=== PATIENT | male | born 1935 | race Caucasian/White ===

== ENCOUNTER 2019-01-20 13:17 | Inpatient (IN) ==
[2019-01-20] MEDS ORDERED: INFLUENZA VIRUS VACCINE 0.5 ML SYRINGE IM ONE (17:01)
[2019-01-20] MEDS ORDERED: ONDANSETRON 4 MG/2 ML VIAL IV PRN (17:09)
[2019-01-20] MEDS ORDERED: NICOTINE 21 MG/24 HR PATCH TRANSDERM PRN (18:15)
[2019-01-20 18:29] LABS: Basophils % 0.4 % (0.0-0.8); Eosinophils # 0.4 10*3/uL (0.0-0.87); Eosinophils % 5.1 % (0.00-10.9); Hematocrit 35.8 VOL% (42.0-52.0); Hemoglobin 11.6 GM/DL (14.0-18.0); Immature Granulocytes % 0.3 %; Immature Granulocytes Absolute 0.02 #; Lymphocytes # 1.8 10*3/uL (1.4-4.0); Lymphocytes % 25.3 % (21.2-54.2); Mean Corpuscular HGB Conc 32.4 GM/DL (32-36); Mean Corpuscular Volume 102.3 FL (87-102); Monocytes % 10.1 % (1.7-12.7); Neutrophils % 58.8 % (38.7-73.9); Platelet Count 174 T/CUMM (130-400); Red Cell Distribution Width 13.1 % (9.3-17.3); White Blood Count 7.2 T/CUMM (4-12)
[2019-01-20 18:53] LABS: Alanine Aminotransferase 18 U/L (16-61); Albumin 3.6 G/DL (3.4-5.0); Alkaline Phosphatase 77 U/L (45-117); Aspartate Amino Transferase 15 U/L (0-37); Bilirubin,Total < 0.39 MG/DL (0.2-1.0); Blood Urea Nitrogen 31 MG/DL (7-18); Estimated Glom Filtration Rate 50 ML/MIN; Glucose 96 MG/DL (74-106); Osmolality,Calculated 285.4 MOS/KG (273-304); Total Protein 7.8 G/DL (6.4-8.3)
[2019-01-20] MEDS: DIPYRIDAMOLE/ASPIRIN 200-25 MG CAPSULE PO SCH (20:44)
[2019-01-20] MEDS: CARBIDOPA/LEVODOPA 25-100 MG TABLET PO SCH (20:44)
[2019-01-20] MEDS: clonazePAM 0.5 MG TABLET PO SCH (20:44)
[2019-01-20] MEDS: LATANOPROST 0.005% OPH SOLN 2.5 ML BOTTLE BOTH EYES SCH (21:46)
[2019-01-21 05:50] LABS: Basophils % 0.6 % (0.0-0.8); Eosinophils # 0.4 10*3/uL (0.0-0.87); Eosinophils % 6.3 % (0.00-10.9); Hemoglobin 10.7 GM/DL (14.0-18.0); Immature Granulocytes % 0.3 %; Immature Granulocytes Absolute 0.02 #; Lymphocytes % 33.1 % (21.2-54.2); Mean Corpuscular HGB Conc 33.4 GM/DL (32-36); Mean Corpuscular Volume 99.7 FL (87-102); Mean Platelet Volume 9.9 FL (9.6-12.0); Monocytes % 10.7 % (1.7-12.7); Platelet Count 159 T/CUMM (130-400); Red Blood Count 3.21 MC/CUMM (3.8-5.5); Red Cell Distribution Width 12.9 % (9.3-17.3); White Blood Count 6.2 T/CUMM (4-12)
[2019-01-21 06:19] LABS: Alanine Aminotransferase < 9 U/L (16-61); Albumin 3.2 G/DL (3.4-5.0); Alkaline Phosphatase 60 U/L (45-117); Aspartate Amino Transferase 11 U/L (0-37); Blood Urea Nitrogen 30 MG/DL (7-18); Calcium 8.9 MG/DL (8.5-10.1); Estimated Glom Filtration Rate 55 ML/MIN; Glucose 89 MG/DL (74-106); HDL Cholesterol 60 MG/DL (40-60); Osmolality,Calculated 290.8 MOS/KG (273-304); Risk Ratio 2.17; Total Protein 6.7 G/DL (6.4-8.3); Triglycerides 101 MG/DL (2-150); VLDL CHOLESTEROL 20.2 MG/DL
[2019-01-21] MEDS ORDERED: ATORVASTATIN 10 MG TABLET PO SCH (09:00)
[2019-01-21] MEDS: metFORMIN 500 MG TABLET PO SCH ×2 (09:03→17:53)
[2019-01-21] MEDS: clonazePAM 0.5 MG TABLET PO SCH ×2 (09:03→21:08)
[2019-01-21] MEDS: POTASSIUM CHLORIDE 10 MEQ TABLET PO SCH (09:03)
[2019-01-21] MEDS: DIPYRIDAMOLE/ASPIRIN 200-25 MG CAPSULE PO SCH (09:03)
[2019-01-21] MEDS: TIMOLOL 0.5% OPH SOLN 5 ML BOTTLE BOTH EYES SCH (09:03)
[2019-01-21] MEDS: OMEGA 3 ACID ETHYL ESTERS 1 GM CAPSULE PO SCH (09:03)
[2019-01-21] MEDS: PANTOPRAZOLE 40 MG TABLET PO SCH (09:03)
[2019-01-21] MEDS ORDERED: ATORVASTATIN 40 MG TABLET PO SCH (21:00)
[2019-01-21] MEDS: APIXABAN 2.5 MG TABLET PO SCH (21:09)
[2019-01-21] MEDS: CARBIDOPA/LEVODOPA 25-100 MG TABLET PO SCH (21:09)
[2019-01-21] MEDS: LATANOPROST 0.005% OPH SOLN 2.5 ML BOTTLE BOTH EYES SCH (21:20)
[2019-01-22 04:55] LABS: Basophils % 0.6 % (0.0-0.8); Eosinophils # 0.4 10*3/uL (0.0-0.87); Eosinophils % 6.5 % (0.00-10.9); Hematocrit 34.2 VOL% (42.0-52.0); Hemoglobin 11.3 GM/DL (14.0-18.0); Immature Granulocytes % 0.3 %; Immature Granulocytes Absolute 0.02 #; Lymphocytes # 2.1 10*3/uL (1.4-4.0); Lymphocytes % 33.2 % (21.2-54.2); Mean Corpuscular Volume 99.4 FL (87-102); Mean Platelet Volume 10.1 FL (9.6-12.0); Monocytes % 9.8 % (1.7-12.7); Neutrophils % 49.6 % (38.7-73.9); Platelet Count 163 T/CUMM (130-400); Red Blood Count 3.44 MC/CUMM (3.8-5.5); Red Cell Distribution Width 12.9 % (9.3-17.3); White Blood Count 6.3 T/CUMM (4-12)
[2019-01-22 05:34] LABS: Alanine Aminotransferase < 9 U/L (16-61); Albumin 3.3 G/DL (3.4-5.0); Alkaline Phosphatase 64 U/L (45-117); Aspartate Amino Transferase 13 U/L (0-37); Blood Urea Nitrogen 28 MG/DL (7-18); Calcium 9.1 MG/DL (8.5-10.1); Estimated Glom Filtration Rate 60 ML/MIN; Glucose 87 MG/DL (74-106); Total Protein 7.1 G/DL (6.4-8.3)
[2019-01-22] MEDS ORDERED: TAMSULOSIN 0.4 MG CAPSULE PO SCH (09:00)
[2019-01-22] MEDS ORDERED: ASPIRIN EC 81 MG TABLET PO SCH (09:00)
[2019-01-22] MEDS: APIXABAN 2.5 MG TABLET PO SCH (09:07)
[2019-01-22] MEDS: OMEGA 3 ACID ETHYL ESTERS 1 GM CAPSULE PO SCH (09:07)
[2019-01-22] MEDS: metFORMIN 500 MG TABLET PO SCH (09:07)
[2019-01-22] MEDS: clonazePAM 0.5 MG TABLET PO SCH (09:07)
[2019-01-22] MEDS: PANTOPRAZOLE 40 MG TABLET PO SCH (09:07)
[2019-01-22] MEDS: POTASSIUM CHLORIDE 10 MEQ TABLET PO SCH (09:38)
[2019-01-22] MEDS: TIMOLOL 0.5% OPH SOLN 5 ML BOTTLE BOTH EYES SCH (09:38)
[2019-01-22 12:57] VITALS: BP 109/60
== END 2019-01-22 13:48 | disposition home health service (06) | DRG 66 ==
LOC: N.4E 13:27 → SUATTDRO 13:27 → SUPCPDRO 15:20 → SUATTDRO 15:20
PROVIDERS: ADMIT Internal Medicine; ATTEND Emergency Medicine

== ENCOUNTER 2021-03-14 05:45 | Inpatient (IN) ==
[2021-03-09 11:46] LABS: Basophils % 0.4 % (0.0-0.8); Eosinophils # 0.1 10*3/uL (0.0-0.87); Eosinophils % 1.7 % (0.00-10.9); Hematocrit 35.2 VOL% (42.0-52.0); Hemoglobin 11.1 GM/DL (14.0-18.0); Immature Granulocytes % 0.3 %; Immature Granulocytes Absolute 0.02 #; Lymphocytes # 1.3 10*3/uL (1.4-4.0); Mean Corpuscular HGB Conc 31.5 GM/DL (32-36); Mean Corpuscular Volume 98.6 FL (87-102); Mean Platelet Volume 10.1 FL (9.6-12.0); Neutrophils % 69.6 % (38.7-73.9); Platelet Count 189 T/CUMM (130-400); Red Blood Count 3.57 MC/CUMM (3.8-5.5); Red Cell Distribution Width 13.5 % (9.3-17.3); White Blood Count 7.5 T/CUMM (4-12)
[2021-03-09 11:56] LABS: PT Patient Result 11.1 SECS (10.5-12.0); Partial Thromboplastin Time 29.7 SECS (23.8-32.1)
[2021-03-09 12:09] LABS: Albumin 3.4 G/DL (3.4-5.0); Calcium 8.8 MG/DL (8.5-10.1); Osmolality,Calculated 282.3 MOS/KG (273-304); Potassium 3.6 MMOL/L (3.5-5.1); Total Protein 7.1 G/DL (6.4-8.2)
[2021-03-14] MEDS ORDERED: HEPARIN/NACL 0.9% 2 UNITS/ML 1,000 UNIT/500 ML BAG IV ONE (05:58)
[2021-03-14] MEDS ORDERED: LIDOCAINE 2% 5 ML VIAL ONE ×2 (06:19→10:16)
[2021-03-14] MEDS ORDERED: LACTATED RINGERS 1,000 ML IV SCH (07:00)
[2021-03-14] MEDS ORDERED: HEPARIN/NACL 0.9% 2 UNITS/ML 6,000 UNIT/3,000 ML BAG IV ONE (07:31)
[2021-03-14] MEDS ORDERED: PROTAMINE SULFATE 50 MG/5 ML VIAL IV ONE ×2 (09:23→10:17)
[2021-03-14] MEDS ORDERED: SUGAMMADEX 200 MG/2 ML VIAL IV ONE (09:27)
[2021-03-14] MEDS ORDERED: HYDROmorphone 2 MG/1 ML VIAL IV PRN (09:35)
[2021-03-14] MEDS ORDERED: ONDANSETRON 4 MG/2 ML VIAL IV PRN (09:35)
[2021-03-14] MEDS ORDERED: ZOLPIDEM 5 MG TABLET PO PRN (09:37)
[2021-03-14] MEDS ORDERED: SEVOFLURANE 1 UNIT/15 MINUTE INH ONE (10:16)
[2021-03-14] MEDS ORDERED: MIDAZOLAM 2 MG/2 ML VIAL ONE (10:16)
[2021-03-14] MEDS ORDERED: propofoL 200 MG/20 ML VIAL IV ONE (10:16)
[2021-03-14] MEDS ORDERED: HEPARIN 10,000 UNIT/10 ML VIAL ONE (10:16)
[2021-03-14] MEDS ORDERED: PHENYLEPHRINE DRIP 20 MG/250 ML PREMIX IV ONE (10:17)
[2021-03-14] MEDS ORDERED: fentaNYL 100 MCG/2 ML VIAL ONE (10:17)
[2021-03-14] MEDS ORDERED: ONDANSETRON 4 MG/2 ML VIAL ONE (10:17)
[2021-03-14] MEDS ORDERED: SODIUM CHLORIDE 0.9% 1,000 ML IV ONE (10:17)
[2021-03-14] MEDS ORDERED: ROCURONIUM 50 MG/5 ML VIAL IV ONE (10:17)
[2021-03-14] MEDS ORDERED: GLYCOPYRROLATE 0.4 MG/2 ML VIAL ONE (10:17)
[2021-03-14] MEDS ORDERED: SUCCINYLCHOLINE 200 MG/10 ML VIAL ONE (10:20)
[2021-03-14] MEDS: LACTATED RINGERS 1,000 ML IV SCH (14:50)
[2021-03-14] MEDS ORDERED: LATANOPROST 0.005% OPH SOLN 2.5 ML BOTTLE BOTH EYES SCH (21:00)
[2021-03-14] MEDS ORDERED: ATORVASTATIN 10 MG TABLET PO SCH (21:00)
[2021-03-15] MEDS: TIMOLOL 0.5% OPH SOLN 5 ML BOTTLE BOTH EYES SCH ×2 (03:00→08:37)
[2021-03-15] MEDS: LACTATED RINGERS 1,000 ML IV SCH (03:02)
[2021-03-15 06:32] LABS: Hematocrit 29.6 VOL% (42.0-52.0); Hemoglobin 9.4 GM/DL (14.0-18.0)
[2021-03-15 07:07] LABS: Calcium 8.4 MG/DL (8.5-10.1); Potassium 4.1 MMOL/L (3.5-5.1)
[2021-03-15 08:17] VITALS: BP 128/54
[2021-03-15] MEDS ORDERED: ASPIRIN EC 81 MG TABLET PO SCH (09:00)
[2021-03-16] MEDS ORDERED: TAMSULOSIN 0.4 MG CAPSULE PO SCH (09:00)
== END 2021-03-15 12:13 | disposition home or self-care (01) | DRG 269 ==
LOC: N.RAD 05:45 → N.SDSINP 05:46 → N.TELES 10:46
PROVIDERS: ADMIT Surgery; ATTEND Surgery
PROC: IRERAAA (2021-03-14 07:35)

== ENCOUNTER 2021-06-20 13:40 | Inpatient (IN) ==
[2021-06-20] MEDS ORDERED: ONDANSETRON 4 MG/2 ML VIAL IV STA (15:28)
[2021-06-20] MEDS ORDERED: HYDROmorphone 2 MG/1 ML VIAL IV STA (15:28)
[2021-06-20 16:29] LABS: Basophils % 0.3 % (0.0-0.8); Eosinophils # 0.1 10*3/uL (0.0-0.87); Hematocrit 29.4 VOL% (42.0-52.0); Hemoglobin 9.3 GM/DL (14.0-18.0); Immature Granulocytes % 0.6 %; Immature Granulocytes Absolute 0.05 #; Lymphocytes % 11.2 % (21.2-54.2); Mean Corpuscular HGB Conc 31.6 GM/DL (32-36); Monocytes % 5.6 % (1.7-12.7); Neutrophils % 81.3 % (38.7-73.9); Platelet Count 171 T/CUMM (130-400); Red Blood Count 2.97 MC/CUMM (3.8-5.5); Red Cell Distribution Width 15.9 % (9.3-17.3); White Blood Count 8.9 T/CUMM (4-12)
[2021-06-20] MEDS ORDERED: LACTULOSE 20 GM/30 ML UDCUP PO PRN (16:40)
[2021-06-20] MEDS ORDERED: CALCIUM CARBONATE CHEW 500 MG TABLET PO PRN (16:40)
[2021-06-20] MEDS ORDERED: ALUMINUM/MAGNES/SIMETH MAX STR 30 ML UDCUP PO PRN (16:40)
[2021-06-20] MEDS ORDERED: ONDANSETRON 4 MG/2 ML VIAL IV PRN (16:40)
[2021-06-20] MEDS ORDERED: GLUCAGON 1 MG VIAL IM PRN (16:40)
[2021-06-20] MEDS ORDERED: ALBUTEROL 2.5 MG/3 ML NEB RESP TX PRN (16:40)
[2021-06-20 16:43] LABS: PT Patient Result 10.9 SECS (10.5-12.0); Partial Thromboplastin Time 25.7 SECS (23.8-32.1)
[2021-06-20 16:50] LABS: Bilirubin,Total 0.4 MG/DL (0.20-1.00); Calcium 8.7 MG/DL (8.5-10.1); Osmolality,Calculated 280.5 MOS/KG (273-304); Total Protein 6.9 G/DL (6.4-8.2)
[2021-06-20] MEDS ORDERED: DEXTROSE 10% 250 ML BAG IV PRN ×2 (16:50→19:31)
[2021-06-20] MEDS ORDERED: NALOXONE 0.4 MG/ML VIAL IV PRN (16:52)
[2021-06-20] MEDS ORDERED: HYDROmorphone 2 MG/1 ML VIAL IV PRN (16:55)
[2021-06-20] MEDS ORDERED: ceFAZolin 2,000 MG/50 ML DUPLEX IV ONE (17:56)
[2021-06-20] MEDS: LACTATED RINGERS 1,000 ML IV SCH (18:28)
[2021-06-20] MEDS ORDERED: KETOROLAC 30 MG/1 ML VIAL IV PRN (18:45)
[2021-06-20 19:10] LABS: % Iron Saturation 15.8 % (18-50)
[2021-06-20 19:17] LABS: Folate 8.77 NG/ML (5.38-24.0)
[2021-06-20] MEDS ORDERED: SODIUM CHLORIDE 0.9% 500 ML IV STA ×2 (19:41→22:20)
[2021-06-20] MEDS: INSULIN LISPRO 100 UNIT/ML SUBCUT SCH (21:35)
[2021-06-20] MEDS: DOCUSATE SODIUM 100 MG CAPSULE PO SCH (22:03)
[2021-06-21] MEDS: LACTATED RINGERS 1,000 ML IV SCH ×5 (00:31→14:35)
[2021-06-21] MEDS ORDERED: ceFAZolin 2,000 MG/50 ML DUPLEX IV ONE (05:51)
[2021-06-21 06:32] LABS: Basophils % 0.3 % (0.0-0.8); Eosinophils % 0.2 % (0.00-10.9); Hematocrit 22.7 VOL% (42.0-52.0); Immature Granulocytes % 0.6 %; Immature Granulocytes Absolute 0.05 #; Lymphocytes # 1.3 10*3/uL (1.4-4.0); Lymphocytes % 14.6 % (21.2-54.2); Mean Corpuscular HGB Conc 30.8 GM/DL (32-36); Mean Corpuscular Volume 101.3 FL (87-102); Monocytes % 10.7 % (1.7-12.7); Neutrophils % 73.6 % (38.7-73.9); Platelet Count 117 T/CUMM (130-400); Red Blood Count 2.24 MC/CUMM (3.8-5.5); Red Cell Distribution Width 16.3 % (9.3-17.3); White Blood Count 8.9 T/CUMM (4-12)
[2021-06-21] MEDS ORDERED: SODIUM CHLORIDE 0.9% 1,000 ML IV PRN (06:40)
[2021-06-21 06:52] LABS: Calcium 7.8 MG/DL (8.5-10.1); Osmolality,Calculated 282.5 MOS/KG (273-304); Potassium 4.8 MMOL/L (3.5-5.1); Risk Ratio 1.74; Thyroid Stimulating Hormone 3.08 uIU/ml (0.358-3.74); VLDL Cholesterol 18.8 MG/DL
[2021-06-21] MEDS ORDERED: BACITRACIN OINT 0.9 GM PACK TOP ONE (07:04)
[2021-06-21] MEDS ORDERED: propofoL 200 MG/20 ML VIAL IV ONE (07:13)
[2021-06-21] MEDS ORDERED: LIDOCAINE 2% 5 ML VIAL ONE (07:13)
[2021-06-21] MEDS ORDERED: fentaNYL 100 MCG/2 ML VIAL ONE (07:13)
[2021-06-21] MEDS ORDERED: ONDANSETRON 4 MG/2 ML VIAL ONE (07:13)
[2021-06-21] MEDS ORDERED: ROCURONIUM 50 MG/5 ML VIAL IV ONE (07:13)
[2021-06-21] MEDS ORDERED: KETAMINE 500 MG/10 ML VIAL ONE (07:13)
[2021-06-21] MEDS ORDERED: PHENYLEPHRINE 1 MG/10 ML SYRINGE IV ONE (07:17)
[2021-06-21] MEDS ORDERED: SODIUM CHLORIDE 0.9% 1,000 ML IV SCH (07:30)
[2021-06-21] MEDS ORDERED: ePHEDrine 50 MG/ML VIAL ONE (08:36)
[2021-06-21] MEDS ORDERED: GLYCOPYRROLATE 0.4 MG/2 ML VIAL ONE (08:39)
[2021-06-21] MEDS ORDERED: NEOSTIGMINE 10 MG/10 ML VIAL ONE (08:39)
[2021-06-21] MEDS ORDERED: MORPHINE 2 MG/1 ML SYRINGE IV PRN ×2 (09:42)
[2021-06-21] MEDS: INSULIN LISPRO 100 UNIT/ML SUBCUT SCH ×4 (11:04→21:21)
[2021-06-21] MEDS: TIMOLOL 0.5% OPH SOLN 5 ML BOTTLE BOTH EYES SCH ×2 (11:05→20:08)
[2021-06-21] MEDS: TAMSULOSIN 0.4 MG CAPSULE PO SCH (11:05)
[2021-06-21] MEDS: PANTOPRAZOLE 40 MG TABLET PO SCH (11:05)
[2021-06-21] MEDS: DOCUSATE SODIUM 100 MG CAPSULE PO SCH ×2 (11:05→20:05)
[2021-06-21] MEDS: MORPHINE 4 MG/1 ML VIAL IV PRN ×3 (11:18→21:55)
[2021-06-21] MEDS: ceFAZolin 2,000 MG/50 ML DUPLEX IV SCH ×2 (14:00→21:21)
[2021-06-21 17:06] LABS: Mucus,Urine Occasional /LPF (Occasional); RBC,Urine 34 /HPF (0-4)
[2021-06-21 17:12] LABS: Urine Appearance Slightly Cloudy (Clear); Urine Color Yellow (Yellow)
[2021-06-21 17:13] LABS: Bilirubin,Urine Negative (Negative); Blood, Urine Moderate mg/dL (Negative); Glucose,Urine (UA) Negative (Negative); Ketones,Urine Negative (Negative); Nitrite,Urine Negative (Negative); Protein,Urine 100 MG/DL; Urine Specific Gravity > 1.030 (1.001-1.035); Urine Urobilinogen 0.2 EU/DL (<2.0)
[2021-06-21] MEDS: LATANOPROST 0.005% OPH SOLN 2.5 ML BOTTLE BOTH EYES SCH (20:05)
[2021-06-22] MEDS: LACTATED RINGERS 1,000 ML IV SCH (00:10)
[2021-06-22 05:14] LABS: Basophils % 0.2 % (0.0-0.8); Eosinophils # 0.3 10*3/uL (0.0-0.87); Eosinophils % 2.8 % (0.00-10.9); Hematocrit 21.8 VOL% (42.0-52.0); Hemoglobin 6.9 GM/DL (14.0-18.0); Immature Granulocytes % 0.6 %; Immature Granulocytes Absolute 0.05 #; Lymphocytes # 1.3 10*3/uL (1.4-4.0); Mean Corpuscular HGB Conc 31.7 GM/DL (32-36); Mean Corpuscular Volume 97.3 FL (87-102); Mean Platelet Volume 10.7 FL (9.6-12.0); Monocytes % 9.7 % (1.7-12.7); Neutrophils % 72.7 % (38.7-73.9); Platelet Count 100 T/CUMM (130-400); Red Blood Count 2.24 MC/CUMM (3.8-5.5); Red Cell Distribution Width 16.3 % (9.3-17.3); White Blood Count 9.1 T/CUMM (4-12)
[2021-06-22 05:19] LABS: Calcium 7.5 MG/DL (8.5-10.1); Osmolality,Calculated 281.8 MOS/KG (273-304); Potassium 4.4 MMOL/L (3.5-5.1)
[2021-06-22] MEDS: INSULIN LISPRO 100 UNIT/ML SUBCUT SCH ×4 (07:15→21:15)
[2021-06-22] MEDS ORDERED: SODIUM CHLORIDE 0.9% 1,000 ML IV PRN (07:43)
[2021-06-22] MEDS ORDERED: FUROSEMIDE 40 MG/4 ML VIAL IV ONE (07:46)
[2021-06-22] MEDS: DOCUSATE SODIUM 100 MG CAPSULE PO SCH ×2 (09:34→21:14)
[2021-06-22] MEDS: CHOLECALCIFEROL 1,000 UNIT TABLET PO SCH (09:34)
[2021-06-22] MEDS: PANTOPRAZOLE 40 MG TABLET PO SCH (09:34)
[2021-06-22] MEDS: APIXABAN 2.5 MG TABLET PO SCH (09:34)
[2021-06-22] MEDS: FERROUS SULFATE 325 MG TABLET PO SCH (09:34)
[2021-06-22] MEDS: ASPIRIN EC 81 MG TABLET PO SCH (09:34)
[2021-06-22] MEDS: TIMOLOL 0.5% OPH SOLN 5 ML BOTTLE BOTH EYES SCH ×2 (13:31→21:14)
[2021-06-22] MEDS: MORPHINE 4 MG/1 ML VIAL IV PRN (13:40)
[2021-06-22 19:22] LABS: Urine Appearance Clear (Clear); Urine Color Yellow (Yellow)
[2021-06-22 19:23] LABS: Bilirubin,Urine Negative (Negative); Blood, Urine Moderate mg/dL (Negative); Glucose,Urine (UA) Negative (Negative); Ketones,Urine Negative (Negative); Nitrite,Urine Negative (Negative); Protein,Urine 100 MG/DL; Urine Specific Gravity >= 1.030 (1.001-1.035); Urine Urobilinogen 0.2 EU/DL (<2.0)
[2021-06-22 19:28] LABS: Bacteria,Urine Occasional /HPF (Few); Hyaline Casts,Urine 3 /LPF (0-3); Mucus,Urine Occasional /LPF (Occasional); RBC,Urine 18 /HPF (0-4)
[2021-06-22 19:45] LABS: Hematocrit 24.3 VOL% (42.0-52.0); Hemoglobin 7.7 GM/DL (14.0-18.0)
[2021-06-22] MEDS: LATANOPROST 0.005% OPH SOLN 2.5 ML BOTTLE BOTH EYES SCH (22:28)
[2021-06-23 06:47] LABS: Basophils % 0.1 % (0.0-0.8); Eosinophils # 0.5 10*3/uL (0.0-0.87); Eosinophils % 6.5 % (0.00-10.9); Hematocrit 21.8 VOL% (42.0-52.0); Hemoglobin 6.9 GM/DL (14.0-18.0); Immature Granulocytes % 0.4 %; Immature Granulocytes Absolute 0.03 #; Lymphocytes # 1.1 10*3/uL (1.4-4.0); Lymphocytes % 14.9 % (21.2-54.2); Mean Corpuscular HGB Conc 31.7 GM/DL (32-36); Mean Corpuscular Volume 96.9 FL (87-102); Monocytes % 8.9 % (1.7-12.7); Neutrophils % 69.2 % (38.7-73.9); Platelet Count 83 T/CUMM (130-400); Red Blood Count 2.25 MC/CUMM (3.8-5.5); Red Cell Distribution Width 15.9 % (9.3-17.3); White Blood Count 7.3 T/CUMM (4-12)
[2021-06-23 07:09] LABS: Calcium 7.8 MG/DL (8.5-10.1); Potassium 4.1 MMOL/L (3.5-5.1)
[2021-06-23 07:12] LABS: Platelet Estimate Adequate; Polychromasia Slight; Tear Drop Cells Few
[2021-06-23] MEDS ORDERED: SODIUM CHLORIDE 0.9% 1,000 ML IV PRN (07:34)
[2021-06-23] MEDS: TAMSULOSIN 0.4 MG CAPSULE PO SCH (10:11)
[2021-06-23] MEDS: ASPIRIN EC 81 MG TABLET PO SCH (10:11)
[2021-06-23] MEDS: APIXABAN 2.5 MG TABLET PO SCH ×2 (10:11→21:17)
[2021-06-23] MEDS: POLYETHYLENE GLYCOL POWDER 17 GM PACK PO SCH (10:12)
[2021-06-23] MEDS: DOCUSATE SODIUM 100 MG CAPSULE PO SCH ×2 (10:12→21:17)
[2021-06-23] MEDS: TIMOLOL 0.5% OPH SOLN 5 ML BOTTLE BOTH EYES SCH ×2 (10:12→21:18)
[2021-06-23] MEDS: CHOLECALCIFEROL 1,000 UNIT TABLET PO SCH (10:12)
[2021-06-23] MEDS: PANTOPRAZOLE 40 MG TABLET PO SCH (10:12)
[2021-06-23] MEDS ORDERED: FUROSEMIDE 20 MG/2 ML VIAL IV PRN (10:22)
[2021-06-23] MEDS ORDERED: MAGNESIUM HYDROXIDE SUSP 30 ML UDCUP PO ONE (10:29)
[2021-06-23] MEDS: FERROUS SULFATE 325 MG TABLET PO SCH (10:33)
[2021-06-23] MEDS: INSULIN LISPRO 100 UNIT/ML SUBCUT SCH ×3 (11:38→23:45)
[2021-06-23] MEDS: ALBUTEROL/IPRATROPIUM 3 ML NEB RESP TX SCH ×2 (14:00→23:50)
[2021-06-23] MEDS: LATANOPROST 0.005% OPH SOLN 2.5 ML BOTTLE BOTH EYES SCH (23:45)
[2021-06-24] MEDS ORDERED: FUROSEMIDE 20 MG/2 ML VIAL IV ONE ×2 (03:24→09:43)
[2021-06-24 06:59] LABS: Basophils % 0.3 % (0.0-0.8); Eosinophils # 0.5 10*3/uL (0.0-0.87); Eosinophils % 7.3 % (0.00-10.9); Hematocrit 24.3 VOL% (42.0-52.0); Hemoglobin 7.8 GM/DL (14.0-18.0); Immature Granulocytes % 0.3 %; Immature Granulocytes Absolute 0.02 #; Lymphocytes # 1.1 10*3/uL (1.4-4.0); Lymphocytes % 16.5 % (21.2-54.2); Mean Corpuscular HGB Conc 32.1 GM/DL (32-36); Mean Corpuscular Volume 95.7 FL (87-102); Mean Platelet Volume 10.9 FL (9.6-12.0); Monocytes % 9.9 % (1.7-12.7); Neutrophils % 65.7 % (38.7-73.9); Platelet Count 101 T/CUMM (130-400); Red Blood Count 2.54 MC/CUMM (3.8-5.5); Red Cell Distribution Width 15.2 % (9.3-17.3); White Blood Count 6.9 T/CUMM (4-12)
[2021-06-24 07:06] LABS: Osmolality,Calculated 281.7 MOS/KG (273-304); Potassium 4.1 MMOL/L (3.5-5.1)
[2021-06-24] MEDS: ALBUTEROL/IPRATROPIUM 3 ML NEB RESP TX SCH ×3 (07:50→23:55)
[2021-06-24 09:20] LABS: Platelet Estimate Adequate; Polychromasia Slight
[2021-06-24] MEDS: FERROUS SULFATE 325 MG TABLET PO SCH (09:33)
[2021-06-24] MEDS: PANTOPRAZOLE 40 MG TABLET PO SCH (09:34)
[2021-06-24] MEDS: ASPIRIN EC 81 MG TABLET PO SCH (09:34)
[2021-06-24] MEDS: APIXABAN 2.5 MG TABLET PO SCH ×2 (09:34→21:25)
[2021-06-24] MEDS: MAGNESIUM HYDROXIDE SUSP 30 ML UDCUP PO PRN ×2 (09:34→09:35)
[2021-06-24] MEDS: DOCUSATE SODIUM 100 MG CAPSULE PO SCH ×2 (09:34→21:25)
[2021-06-24] MEDS: CHOLECALCIFEROL 1,000 UNIT TABLET PO SCH (09:34)
[2021-06-24] MEDS: INSULIN LISPRO 100 UNIT/ML SUBCUT SCH ×3 (11:47→21:25)
[2021-06-24] MEDS: cefTRIAXone 1,000 MG in SODIUM CHLORIDE 0.9% 100 ML IV SCH (11:48)
[2021-06-24] MEDS: POLYETHYLENE GLYCOL POWDER 17 GM PACK PO SCH (11:48)
[2021-06-24] MEDS: TIMOLOL 0.5% OPH SOLN 5 ML BOTTLE BOTH EYES SCH ×2 (11:56→21:28)
[2021-06-24] MEDS ORDERED: TAMSULOSIN 0.4 MG CAPSULE PO SCH (21:00)
[2021-06-24] MEDS: LATANOPROST 0.005% OPH SOLN 2.5 ML BOTTLE BOTH EYES SCH (21:25)
[2021-06-25 04:40] LABS: Basophils % 0.3 % (0.0-0.8); Eosinophils # 0.6 10*3/uL (0.0-0.87); Eosinophils % 9.1 % (0.00-10.9); Hematocrit 22.9 VOL% (42.0-52.0); Hemoglobin 7.2 GM/DL (14.0-18.0); Immature Granulocytes % 0.4 %; Immature Granulocytes Absolute 0.03 #; Lymphocytes # 1.4 10*3/uL (1.4-4.0); Lymphocytes % 20.7 % (21.2-54.2); Mean Corpuscular HGB Conc 31.4 GM/DL (32-36); Mean Corpuscular Volume 95.8 FL (87-102); Mean Platelet Volume 10.3 FL (9.6-12.0); Monocytes % 9.8 % (1.7-12.7); Neutrophils % 59.7 % (38.7-73.9); Platelet Count 114 T/CUMM (130-400); Red Blood Count 2.39 MC/CUMM (3.8-5.5); Red Cell Distribution Width 14.9 % (9.3-17.3); White Blood Count 6.7 T/CUMM (4-12)
[2021-06-25 04:53] LABS: Calcium 8.3 MG/DL (8.5-10.1); Osmolality,Calculated 281.8 MOS/KG (273-304); Potassium 3.8 MMOL/L (3.5-5.1)
[2021-06-25] MEDS: ALBUTEROL/IPRATROPIUM 3 ML NEB RESP TX SCH (07:12)
[2021-06-25] MEDS: INSULIN LISPRO 100 UNIT/ML SUBCUT SCH ×2 (07:54→12:16)
[2021-06-25] MEDS: ASPIRIN EC 81 MG TABLET PO SCH (08:31)
[2021-06-25] MEDS: APIXABAN 2.5 MG TABLET PO SCH (08:31)
[2021-06-25] MEDS: DOCUSATE SODIUM 100 MG CAPSULE PO SCH (08:31)
[2021-06-25] MEDS: POLYETHYLENE GLYCOL POWDER 17 GM PACK PO SCH (08:32)
[2021-06-25] MEDS: FERROUS SULFATE 325 MG TABLET PO SCH (08:32)
[2021-06-25] MEDS: PANTOPRAZOLE 40 MG TABLET PO SCH (08:33)
[2021-06-25] MEDS: CHOLECALCIFEROL 1,000 UNIT TABLET PO SCH (08:33)
[2021-06-25] MEDS: TIMOLOL 0.5% OPH SOLN 5 ML BOTTLE BOTH EYES SCH (08:34)
[2021-06-25] MEDS: cefTRIAXone 1,000 MG in SODIUM CHLORIDE 0.9% 100 ML IV SCH (10:16)
[2021-06-25 11:30] VITALS: BP 131/67
== END 2021-06-25 13:15 | disposition home or self-care (01) | DRG 481 ==
LOC: EDUNIT# → EDBD → N.ED 13:40 → N.3E 16:29 → SUATTDRO 16:29 → N.3E 23:07
PROVIDERS: ADMIT Internal Medicine; ATTEND Internal Medicine Geriatric Medicine